=== PATIENT | female | born 1950 | race Asian ===

== ENCOUNTER 2020-09-10 15:44 | Emergency (ER) | payer MEDICARE, OTHER ==
[~2020-09-10] VITALS: Ht 160 cm; Wt 65.9 kg
[2020-09-10] MEDS ORDERED: RIFA300 PO (16:04)
[2020-09-10] MEDS ORDERED: ALBU8HFA IH (16:04)
[2020-09-10] MEDS ORDERED: CHOL100018 PO (16:04)
[2020-09-10] MEDS ORDERED: PRAV40TA4 PO (16:04)
[2020-09-10] MEDS ORDERED: MECL-183 PO (16:04)
[2020-09-10 17:00] VITALS: BP 134/81
[2020-09-10] MEDS ORDERED: LIDOCAINE 1%/EPI 1:200,000/PF 10 ML VIAL INJ ONE (17:00)
== END 2020-09-10 17:57 | disposition home or self-care (01) ==
LOC: EMS 15:44
DX: S01.01XA Laceration without foreign body of scalp, initial encounter (principal); J45.909 Unspecified asthma, uncomplicated; E78.00 Pure hypercholesterolemia, unspecified; Z79.899 Other long term (current) drug therapy; Z90.710 Acquired absence of both cervix and uterus; W01.198A Fall on same level from slipping, tripping and stumbling with subsequent striking against other object, initial encounter; Y93.89 Activity, other specified; Y92.090 Kitchen in other non-institutional residence as the place of occurrence of the external cause; Y99.8 Other external cause status
CPT/HCPCS: 12002; 99283; J3490